=== PATIENT | female | born 1970 | race Hispanic/Latino ===

== ENCOUNTER → 2019-09-18 | Outpatient (CLI) | payer BC | END | disposition home or self-care (01) | LOC: RAH 09:22 | PROVIDERS: ATTEND Internal Medicine | DX: J98.8 Other specified respiratory disorders (principal) | CPT/HCPCS: 71046 ==

== ENCOUNTER → 2023-09-16 | Outpatient (CLI) | payer BC | END | disposition home or self-care (01) | LOC: RAH 10:44 | PROVIDERS: ATTEND Internal Medicine | DX: M47.816 Spondylosis without myelopathy or radiculopathy, lumbar region (principal); M54.16 Radiculopathy, lumbar region | CPT/HCPCS: 72100; 72220; 73522 ==